=== PATIENT | male | born 1945 | race Caucasian/White ===

== ENCOUNTER 2016-08-21 15:11 | Inpatient (IN) | payer MEDICARE, MEDICAID ==
[~2016-08-21] VITALS: Ht 167.6 cm; Wt 81.6 kg
[~2016-08-21 15:11] MED LIST: ATOR10TA69 PO; DILT60TA41 PO; HYDR-3927 PO; MULT-1146 PO
[2016-08-21 15:56] LABS: CHLORIDE 111 mEq/L (98-107); INDEX HEMOLYSI 1 (1-3); INDEX ICTERIC 1 (1-4); INDEX LIPEMIC 1 (1-3)
[2016-08-21 15:57] LABS: BASOPHILS % 0.3 % (0.0-2.0); DIFFERENTIAL COMMENT 0; HEMATOCRIT. 43.4 % (42.0-52.0); HEMOGLOBIN. 14.7 g/dL (14.0-18.0); LYMPHOCYTES % 40.4 % (20.0-50.0); MEAN CORPUSCULAR HGB CONC 33.9 g/dL (31.0-37.0); MEAN CORPUSCULAR VOLUME 91.5 fL (80.0-94.0); MEAN PLATELET VOLUME 11.1 fl (7.4-10.4); MONOCYTES % 8.9 % (2.0-8.0); NEUTROPHILS % 46.4 % (40.0-76.0); PLATELET 111 x1000/uL (130-400); RED BLOOD CELL COUNT 4.74 mill/uL (4.7-6.1); RED CELL DISTRIBUTION WIDTH 13.4 % (11.6-14.6); WHITE BLOOD COUNT 5.6 x1000/uL (4.5-11.0)
[2016-08-21 16:00] LABS: INR 1.1; PARTIAL THROMBOPLASTIN TIME 22.9 sec (24.0-34.0)
[2016-08-21 16:05] LABS: ALANINE AMINOTRANSFERASE 14 IU/L (13-61); ALBUMIN 3.7 g/dL (3.4-5.0); ANION GAP 11; CALCIUM 8.6 mg/dL (8.5-10.1); CARBON DIOXIDE 27 mEq/L (21-32); UREA NITROGEN BLOOD 22 mg/dL (7-21); eGFR > 60 mL/min (>60)
[2016-08-21 16:25] LABS: CLARITY URINE CLEAR (CLEAR); COLOR URINE DARK YELLOW (YELLOW); GLUCOSE URINE NEGATIVE (NEGATIVE); KETONES URINE TRACE (NEGATIVE); LEUKOCYTE ESTERASE URINE NEGATIVE (NEGATIVE); NITRITE URINE NEGATIVE (NEGATIVE); OCCULT BLOOD URINE NEGATIVE (NEGATIVE); PH URINE 5.5 (4.5-8.0); PROTEIN URINE NEGATIVE (NEGATIVE); SPECIFIC GRAVITY URINE 1.038 (1.005-1.030)
[2016-08-21 21:20] VITALS: BP 138/79
[2016-08-21 22:00] VITALS: BP 138/79
[2016-08-21] MEDS ORDERED: ASPI-1035 PO (22:19)
[2016-08-21] MEDS ORDERED: DILT180C3 PO (22:21)
[2016-08-21] MEDS ORDERED: HYDROMORPHONE HCL/PF 2MG/ML CPJ IV PRN (23:15)
[2016-08-21] MEDS: DILTIAZEM HCL 180MG CAPSULE CD 24HR PO SCH (23:15)
[2016-08-21] MEDS ORDERED: ACETAMINOPHEN 650MG/20.3ML UDC GT PRN (23:15)
[2016-08-21] MEDS ORDERED: ONDANSETRON HCL 4MG/2ML VIAL IV PRN (23:15)
[2016-08-21] MEDS ORDERED: LORAZEPAM 2MG/ML CPJ IV PRN (23:15)
[2016-08-21] MEDS ORDERED: ACETAMINOPHEN 325MG TABLET PO PRN (23:15)
[2016-08-22] VITALS: BP 128/70
[2016-08-22] MEDS: SODIUM CHLORIDE 0.9% 1,000 ML IV SCH (00:47)
[2016-08-22 04:00] VITALS: BP 121/82
[2016-08-22 06:37] LABS: BASOPHILS % 0.3 % (0.0-2.0); EOSINOPHILS % 3.2 % (0.0-5.0); HEMATOCRIT. 40.7 % (42.0-52.0); HEMOGLOBIN. 13.8 g/dL (14.0-18.0); LYMPHOCYTES % 34.5 % (20.0-50.0); MEAN CORPUSCULAR HEMOGLOBIN 31.2 pg (28.0-32.0); MEAN CORPUSCULAR HGB CONC 33.9 g/dL (31.0-37.0); MEAN CORPUSCULAR VOLUME 92.1 fL (80.0-94.0); MEAN PLATELET VOLUME 11.4 fl (7.4-10.4); MONOCYTES % 9.1 % (2.0-8.0); NEUTROPHILS % 52.9 % (40.0-76.0); PLATELET 115 x1000/uL (130-400); RED BLOOD CELL COUNT 4.42 mill/uL (4.7-6.1); RED CELL DISTRIBUTION WIDTH 13.7 % (11.6-14.6); WHITE BLOOD COUNT 6.8 x1000/uL (4.5-11.0)
[2016-08-22 07:13] LABS: ANION GAP 12; CALCIUM 8.6 mg/dL (8.5-10.1); CARBON DIOXIDE 26 mEq/L (21-32); CHLORIDE 111 mEq/L (98-107); INDEX HEMOLYSI 1 (1-3); INDEX ICTERIC 1 (1-4); INDEX LIPEMIC 1 (1-3); MAGNESIUM 2.2 mg/dL (1.8-2.4); PHOSPHORUS 3.2 mg/dL (2.5-4.9); UREA NITROGEN BLOOD 20 mg/dL (7-21); eGFR > 60 mL/min (>60)
[2016-08-22 08:00] VITALS: BP 142/90
[2016-08-22] MEDS: ASPIRIN 81MG EC TABLET PO SCH (08:41)
[2016-08-22] MEDS: DILTIAZEM HCL 180MG CAPSULE CD 24HR PO SCH (08:41)
[2016-08-22 12:00] VITALS: BP 143/93
[2016-08-22 16:00] VITALS: BP 129/87
[2016-08-22] MEDS: CLOPIDOGREL 75MG TABLET PO SCH (16:38)
[2016-08-22 20:00] VITALS: BP 152/83
[2016-08-22] MEDS ORDERED: ATORVASTATIN CALCIUM 10MG TABLET PO SCH (21:00)
[2016-08-23] VITALS: BP 130/79
[2016-08-23] MEDS: SODIUM CHLORIDE 0.9% 1,000 ML IV SCH (00:15)
[2016-08-23 04:00] VITALS: BP 115/67
[2016-08-23 05:51] LABS: BASOPHILS % 0.3 % (0.0-2.0); EOSINOPHILS % 2.9 % (0.0-5.0); HEMATOCRIT. 40.9 % (42.0-52.0); HEMOGLOBIN. 14.2 g/dL (14.0-18.0); LYMPHOCYTES % 37.9 % (20.0-50.0); MEAN CORPUSCULAR HEMOGLOBIN 31.4 pg (28.0-32.0); MEAN CORPUSCULAR HGB CONC 34.7 g/dL (31.0-37.0); MEAN CORPUSCULAR VOLUME 90.6 fL (80.0-94.0); MEAN PLATELET VOLUME 10.9 fl (7.4-10.4); MONOCYTES % 8.6 % (2.0-8.0); NEUTROPHILS % 50.3 % (40.0-76.0); PLATELET 111 x1000/uL (130-400); RED BLOOD CELL COUNT 4.51 mill/uL (4.7-6.1); WHITE BLOOD COUNT 6.9 x1000/uL (4.5-11.0)
[2016-08-23 06:25] LABS: ANION GAP 12; CALCIUM 8.1 mg/dL (8.5-10.1); CARBON DIOXIDE 24 mEq/L (21-32); CHLORIDE 109 mEq/L (98-107); INDEX HEMOLYSI 1 (1-3); INDEX ICTERIC 1 (1-4); INDEX LIPEMIC 1 (1-3); UREA NITROGEN BLOOD 18 mg/dL (7-21); eGFR > 60 mL/min (>60)
[2016-08-23 08:00] VITALS: BP 134/82
[2016-08-23] MEDS: CLOPIDOGREL 75MG TABLET PO SCH (08:27)
[2016-08-23] MEDS: ASPIRIN 81MG EC TABLET PO SCH (08:28)
[2016-08-23] MEDS: DILTIAZEM HCL 180MG CAPSULE CD 24HR PO SCH (08:28)
[2016-08-23] MEDS ORDERED: POTASSIUM CHLORIDE 20 MEQ/PACKET PO SCH (09:30)
[2016-08-23 12:00] VITALS: BP 134/80
[2016-08-23 16:00] VITALS: BP 119/75
[2016-08-23] MEDS ORDERED: ACET-2178 PO (17:54)
[2016-08-23] MEDS ORDERED: APIX5TAB PO (17:54)
[2016-08-23] MEDS ORDERED: ATOR20TA PO (17:54)
[2016-08-23] MEDS ORDERED: Ondansetron Hcl/Pf IV (17:54)
[2016-08-23] MEDS ORDERED: DILT180C69 PO (17:54)
[2016-08-23] MEDS: APIXABAN 5 MG TABLET PO SCH (18:03)
[2016-08-23 20:00] VITALS: BP 132/78
[2016-08-23] MEDS ORDERED: ATORVASTATIN CALCIUM 20MG TABLET PO SCH (21:00)
[2016-08-24] VITALS: BP 117/82
[2016-08-24 04:00] VITALS: BP 124/72
[2016-08-24 05:50] LABS: ANION GAP 13; CALCIUM 8.1 mg/dL (8.5-10.1); CARBON DIOXIDE 25 mEq/L (21-32); CHLORIDE 109 mEq/L (98-107); INDEX HEMOLYSI 1 (1-3); INDEX ICTERIC 1 (1-4); INDEX LIPEMIC 1 (1-3); UREA NITROGEN BLOOD 13 mg/dL (7-21); eGFR > 60 mL/min (>60)
[2016-08-24 08:00] VITALS: BP 146/91
[2016-08-24] MEDS: APIXABAN 5 MG TABLET PO SCH ×2 (08:35→17:44)
[2016-08-24] MEDS: ASPIRIN 81MG EC TABLET PO SCH (08:35)
[2016-08-24] MEDS: DILTIAZEM HCL 180MG CAPSULE CD 24HR PO SCH (08:35)
[2016-08-24 12:00] VITALS: BP 128/85
[2016-08-24 16:00] VITALS: BP 126/85
[2016-08-24 16:25] VITALS: BP 126/85
== END 2016-08-24 18:55 | DRG 65 ==
LOC: ER 15:12 → 5WST 21:27
PROVIDERS: ADMIT Internal Medicine Nephrology; ATTEND Internal Medicine Nephrology
DX: I63.9 Cerebral infarction, unspecified (principal); I42.9 Cardiomyopathy, unspecified; E78.00 Pure hypercholesterolemia, unspecified; E78.5 Hyperlipidemia, unspecified; E87.6 Hypokalemia; R29.810 Facial weakness; R47.81 Slurred speech; I10 Essential (primary) hypertension; I48.2 Chronic atrial fibrillation; Z79.01 Long term (current) use of anticoagulants; Z86.73 Personal history of transient ischemic attack (TIA), and cerebral infarction without residual deficits; Z79.899 Other long term (current) drug therapy
CPT/HCPCS: 36415; 70450; 70551; 71010; 80048; 80053; 80061; 81003; 83735; 84100; 84484; 85025; 85610; 85730; 92610; 93005; 93306; 93880; 97116; 97163; 97530; 99285; J2060; J7030

== ENCOUNTER 2016-08-24 18:50 | Inpatient (IN) | payer MEDICARE, MEDICAID ==
[~2016-08-24] VITALS: Ht 167.6 cm; Wt 81.6 kg
[~2016-08-24 18:50] MED LIST changes: +ACET-2178 PO; +APIX5TAB PO; +ASPI-1035 PO; -ATOR10TA69 PO; +ATOR20TA PO; +DILT180C69 PO; -DILT60TA41 PO; -HYDR-3927 PO; -MULT-1146 PO; +Ondansetron Hcl/Pf IV
[2016-08-24 20:00] VITALS: BP 140/81
[2016-08-24] MEDS ORDERED: ACETAMINOPHEN 650MG/20.3ML UDC PO PRN (21:45)
[2016-08-24] MEDS ORDERED: ACETAMINOPHEN 325MG TABLET PO PRN (21:45)
[2016-08-24] MEDS ORDERED: HYDROCODONE/ACETAMINOPHEN 5/325MG TABLET PO PRN (21:45)
[2016-08-24] MEDS: ATORVASTATIN CALCIUM 20MG TABLET PO SCH (22:47)
[2016-08-25 08:00] VITALS: BP 114/72
[2016-08-25] MEDS: APIXABAN 5 MG TABLET PO SCH ×2 (08:48→17:14)
[2016-08-25] MEDS: DOCUSATE SODIUM 100MG CAPSULE PO SCH ×2 (08:48→17:14)
[2016-08-25] MEDS: ASPIRIN 81MG TABLET PO SCH (08:48)
[2016-08-25] MEDS: DILTIAZEM HCL 180MG CAPSULE CD 24HR PO SCH (08:49)
[2016-08-25 20:00] VITALS: BP 128/80
[2016-08-25] MEDS ORDERED: ATORVASTATIN CALCIUM 20MG TABLET PO SCH (21:00)
[2016-08-25] MEDS: ATORVASTATIN CALCIUM 20MG TABLET PO SCH (21:22)
[2016-08-26 08:00] VITALS: BP 105/70
[2016-08-26] MEDS: DILTIAZEM HCL 180MG CAPSULE CD 24HR PO SCH (09:00)
[2016-08-26] MEDS: ASPIRIN 81MG TABLET PO SCH (10:01)
[2016-08-26] MEDS: APIXABAN 5 MG TABLET PO SCH ×2 (10:02→16:36)
[2016-08-26] MEDS: DOCUSATE SODIUM 100MG CAPSULE PO SCH ×2 (10:02→16:36)
[2016-08-26 20:00] VITALS: BP 118/63
[2016-08-26] MEDS: ATORVASTATIN CALCIUM 20MG TABLET PO SCH (22:29)
[2016-08-27 08:00] VITALS: BP 122/83
[2016-08-27] MEDS: APIXABAN 5 MG TABLET PO SCH ×2 (08:22→17:11)
[2016-08-27] MEDS: ASPIRIN 81MG TABLET PO SCH (08:22)
[2016-08-27] MEDS: DILTIAZEM HCL 180MG CAPSULE CD 24HR PO SCH (08:22)
[2016-08-27] MEDS: DOCUSATE SODIUM 100MG CAPSULE PO SCH ×2 (08:22→17:11)
[2016-08-27] MEDS: ATORVASTATIN CALCIUM 20MG TABLET PO SCH (22:20)
[2016-08-28 08:00] VITALS: BP 164/70
[2016-08-28] MEDS: DILTIAZEM HCL 180MG CAPSULE CD 24HR PO SCH (09:00)
[2016-08-28] MEDS: APIXABAN 5 MG TABLET PO SCH ×2 (09:18→16:16)
[2016-08-28] MEDS: ASPIRIN 81MG TABLET PO SCH (09:18)
[2016-08-28] MEDS: DOCUSATE SODIUM 100MG CAPSULE PO SCH ×2 (09:18→16:16)
[2016-08-28 20:00] VITALS: BP 119/77
[2016-08-28] MEDS: ATORVASTATIN CALCIUM 20MG TABLET PO SCH (21:42)
[2016-08-29 07:15] LABS: BASOPHILS % 0.4 % (0.0-2.0); DIFFERENTIAL COMMENT 0; EOSINOPHILS % 3.8 % (0.0-5.0); HEMATOCRIT. 44.1 % (42.0-52.0); HEMOGLOBIN. 15.1 g/dL (14.0-18.0); LYMPHOCYTES % 34.3 % (20.0-50.0); MEAN CORPUSCULAR HEMOGLOBIN 31.3 pg (28.0-32.0); MEAN CORPUSCULAR HGB CONC 34.3 g/dL (31.0-37.0); MEAN CORPUSCULAR VOLUME 91.3 fL (80.0-94.0); MEAN PLATELET VOLUME 11.2 fl (7.4-10.4); MONOCYTES % 10.5 % (2.0-8.0); PLATELET 119 x1000/uL (130-400); RED BLOOD CELL COUNT 4.83 mill/uL (4.7-6.1); RED CELL DISTRIBUTION WIDTH 14.1 % (11.6-14.6); WHITE BLOOD COUNT 6.5 x1000/uL (4.5-11.0)
[2016-08-29 07:33] LABS: ANION GAP 11; CALCIUM 8.6 mg/dL (8.5-10.1); CARBON DIOXIDE 28 mEq/L (21-32); CHLORIDE 107 mEq/L (98-107); INDEX HEMOLYSI 1 (1-3); INDEX ICTERIC 1 (1-4); INDEX LIPEMIC 1 (1-3); MAGNESIUM 2.3 mg/dL (1.8-2.4); UREA NITROGEN BLOOD 16 mg/dL (7-21); eGFR > 60 mL/min (>60)
[2016-08-29 08:00] VITALS: BP 113/71
[2016-08-29] MEDS: ASPIRIN 81MG TABLET PO SCH (09:07)
[2016-08-29] MEDS: APIXABAN 5 MG TABLET PO SCH ×2 (09:07→17:43)
[2016-08-29] MEDS: DOCUSATE SODIUM 100MG CAPSULE PO SCH ×2 (09:07→17:43)
[2016-08-29] MEDS: DILTIAZEM HCL 180MG CAPSULE CD 24HR PO SCH (09:08)
[2016-08-29 20:00] VITALS: BP 102/40
[2016-08-29] MEDS: ATORVASTATIN CALCIUM 20MG TABLET PO SCH (21:51)
[2016-08-30 08:00] VITALS: BP 133/78
[2016-08-30] MEDS: DILTIAZEM HCL 180MG CAPSULE CD 24HR PO SCH (09:01)
[2016-08-30] MEDS: APIXABAN 5 MG TABLET PO SCH (09:01)
[2016-08-30] MEDS: ASPIRIN 81MG TABLET PO SCH (09:01)
[2016-08-30] MEDS: DOCUSATE SODIUM 100MG CAPSULE PO SCH (09:01)
[2016-08-30] MEDS ORDERED: DEXT15DR5 EACHEYE (09:02)
[2016-08-30] MEDS ORDERED: APIX5TAB PO (09:02)
[2016-08-30 10:28] VITALS: BP 133/78
== END 2016-08-30 10:56 | disposition home health service (06) | DRG 65 ==
PROVIDERS: ADMIT Psychiatry & Neurology Neurology; ATTEND Internal Medicine Nephrology
DX: I63.49 Cerebral infarction due to embolism of other cerebral artery (principal); I42.9 Cardiomyopathy, unspecified; E78.5 Hyperlipidemia, unspecified; E87.6 Hypokalemia; I10 Essential (primary) hypertension; I48.0 Paroxysmal atrial fibrillation; R13.10 Dysphagia, unspecified; I73.9 Peripheral vascular disease, unspecified; M13.0 Polyarthritis, unspecified; E78.00 Pure hypercholesterolemia, unspecified; E56.9 Vitamin deficiency, unspecified; I48.2 Chronic atrial fibrillation; Z79.01 Long term (current) use of anticoagulants; Z79.82 Long term (current) use of aspirin; Z79.899 Other long term (current) drug therapy; Z82.49 Family history of ischemic heart disease and other diseases of the circulatory system; Z83.3 Family history of diabetes mellitus
CPT/HCPCS: 36415; 80048; 83735; 85025; 92523; 93005; 97110; 97112; 97116; 97162; 97167; 97530; 97532; 97535

== ENCOUNTER → 2017-08-28 | Outpatient (CLI) | payer MEDICARE, MEDICAID ==
[~2017-08-28] MED LIST changes: -ACET-2178 PO; -ASPI-1035 PO; +ASPI-1159 PO; +DEXT15DR5 EACHEYE; -Ondansetron Hcl/Pf IV
== END | disposition home or self-care (01) ==
LOC: CARD 10:15
PROVIDERS: ATTEND Psychiatry & Neurology Neurology
DX: I69.30 Unspecified sequelae of cerebral infarction (principal); I63.8 Other cerebral infarction